=== PATIENT | female | born 1985 | race Caucasian/White ===

== ENCOUNTER 2024-12-28 12:02 | Emergency (ER) | payer MEDICAID, OTHER ==
[~2024-12-28] VITALS: Ht 170.2 cm; Wt 56.7 kg
[2024-12-28] MEDS ORDERED: ONDANSETRON HCL/PF 4 MG/2 ML VIAL ONE (12:24)
[2024-12-28] MEDS ORDERED: MORPHINE SULFATE INJ 4 MG/ML DISP.SYRIN ONE (12:24)
[2024-12-28] MEDS ORDERED: ACETAMINOPHEN ES 500 MG TABLET ONE (12:25)
[2024-12-28] MEDS: ONDANSETRON HCL/PF 4 MG/2 ML VIAL IV ONE (12:33)
[2024-12-28] MEDS: MORPHINE SULFATE INJ 2 MG/ML DISP.SYRIN IV ONE (12:33)
[2024-12-28] MEDS: ACETAMINOPHEN ES 500 MG TABLET PO ONE (12:34)
[2024-12-28 12:36] LABS: PLATELET COUNT (AUTO) 313 K/uL (150-450); RED BLOOD CELL COUNT(AUTO) 4.22 MIL/uL (4.0-5.2); RED CELL DISTRIBUTION WIDTH 13.7 % (11.5-15.0); WHITE BLOOD COUNT (AUTO) 4.9 K/uL (4.3-11.0)
[2024-12-28 12:50] LABS: ASPARTATE AMINOTRANSFERASE 75.0 U/L (15-37); CALCIUM, SERUM 8.4 mg/dL (8.5-10.1); CREATININE 0.6 mg/dL (0.6-1.3); SODIUM SERUM 141.0 mmol/L (136-145); TOTAL PROTEIN, SERUM 6.5 g/dL (6.4-8.2); UREA NITROGEN, BLOOD 7.0 mg/dL (7-18)
[2024-12-28 12:51] LABS: INR 1.08 (0.91-1.10)
[2024-12-28] MEDS ORDERED: IOHEXOL-350 100 ML VIAL IV ONE (12:52)
[2024-12-28] MEDS ORDERED: CT SWABBABLE VALVE TRANS SET 1 EA INFUS.SET MC ONE (12:53)
[2024-12-28] MEDS ORDERED: HYDROMORPHONE 1 MG/1 ML DISP.SYRIN ONE (13:58)
[2024-12-28] MEDS: HYDROMORPHONE 1 MG/1 ML DISP.SYRIN IV ONE (14:02)
[2024-12-28 19:57] VITALS: BP 105/69; TEMP 98.4; O2SAT 98
== END 2024-12-28 19:57 ==
LOC: ER 12:06
DX: S39.91XA Unspecified injury of abdomen, initial encounter (principal); M48.56XA Collapsed vertebra, not elsewhere classified, lumbar region, initial encounter for fracture; F31.9 Bipolar disorder, unspecified; R51.9 Headache, unspecified; M51.26 Other intervertebral disc displacement, lumbar region; Z79.899 Other long term (current) drug therapy; V89.2XXA Person injured in unspecified motor-vehicle accident, traffic, initial encounter; Y93.89 Activity, other specified; Y92.410 Unspecified street and highway as the place of occurrence of the external cause; Y99.9 Unspecified external cause status
CPT/HCPCS: 99291; 96374; 96375; 72125; 71260; 70450; 72131; 72128; 74177; 85025; 80048; 80076; 36415; 85730; 86850; 80320; J2270; J2405; Q9967; J1171; G0480